=== PATIENT | female | born 1995 | race American Indian/Alaskan Native ===

== ENCOUNTER 2017-12-13 09:17 | Observation (INO) | payer OTHER ==
[~2017-12-13] VITALS: Ht 157.5 cm; Wt 72.0 kg
[~2017-12-13 09:17] MED LIST: ALBUTEROL SULF8.5 GM INH; NAPROSYN500 MG PO; NORCO 5-325 TA1 EACH PO
--- NOTE | 2017-12-14 07:06 | EKG ---
[facility] [address] [facility] [place], [place] [address] Signed Sinus tachycardia Otherwise normal ECG No previous ECGs available Confirmed by KATIE PERAL MD ([id number]) on 12/14/2017 7:06:24 AM Electronically Signed By: KATIE PEARL MD 12/14/17 0706 PATIENT NAME: LYNNE FRANCOIS Electrocardiogram DATE OF : [birth year] PHYSICIAN: KATIE PEARL MD REPORT #: [id number] REPORT IS CONFIDENTIAL AND NOT TO BE RELEASED WITHOUT AUTHORIZATION
[2017-12-15] MEDS ORDERED: NAPROSYN500 MG PO (09:00)
[2017-12-15] MEDS ORDERED: AMOX TR-K CLV1 EAC1 PO (09:01)
[2017-12-15] MEDS ORDERED: GUAIFENESIN-CODE5 ML PO (09:02)
== END 2017-12-15 11:45 | disposition home or self-care (01) ==
LOC: ED 09:17 → MS 09:19 → CCU 09:19 → MS 12-14 10:50
PROVIDERS: ADMIT Internal Medicine
DX: F15.129 Other stimulant abuse with intoxication, unspecified (principal); N39.0 Urinary tract infection, site not specified; R05 Cough; R00.0 Tachycardia, unspecified; F17.210 Nicotine dependence, cigarettes, uncomplicated; R19.00 Intra-abdominal and pelvic swelling, mass and lump, unspecified site; M79.89 Other specified soft tissue disorders
CPT/HCPCS: 36415; 71046; 80053; 81001; 82550; 83605; 84703; 85025; 87040; 87077; 87088; 87186; 87502; 93005; 93010; 96372; 96374; 96375; 96376; 99285; G0378; J0692; J2060; J7030; J7120

== ENCOUNTER 2018-11-11 15:58 | Observation (INO) | payer OTHER ==
[~2018-11-11] VITALS: Ht 157.5 cm; Wt 75.8 kg
[~2018-11-11 15:58] MED LIST changes: +AMOX TR-K CLV1 EAC1 PO; +GUAIFENESIN-CODE5 ML PO
--- NOTE | 2018-11-11 19:58 | NUR ---
11/11/181957 Angelica Bourgeois 1955: PT ARRIVES TO PACU FROM [place] DROWSY AND COUGHING. PT HAS MASK IN PLACE WITH 10L O2. PT SATS 100%. PT ABLE TO RESPOND TO VERBAL STIMULI AND STATES THAT HER THROAT HURTS.
--- NOTE | 2018-11-11 21:01 | NUR ---
PT ADMITTED FROM PACU, REPORT RECEIVED FROM PACU NURSE. PT IS ALERT AND AWAKE, TRANSFERRED SELF TO BED FROM [facility] BY SLIDING SELF. PT DENIES PAIN AT THIS TIME. STATES SHE IS HUNGRY AND REQUESTING ICE AND SOMETHING TO EAT. JELLO PROVIDED. I&D DONE TO LEFT LABIA ASSESSED, GAUZE IN PLACE NO DRAINAGE NOTED, WOUND IS PACKED WITH IODOFORM GAUZE. PERIPAD IN PLACE. PT EDUCATED REGARDING USING CALL LIGHT AND NOT GETTING UP WITHOUT ASSISTANCE, VERBALIZES UNDERSTANDING. MACK IN PLACE DRAINING YELLOW URINE. WILL EMPTY NOW AND START NEW URINE COUNT. ELEVATED HR NOTED, 101, PACU NURSE STATES PT HAS BEEN TACHYCARDIC. WILL CON TO MONITOR. CALL LIGHT IN HAND, BED RAILS IN PLACE.
--- NOTE | 2018-11-11 21:46 | NUR ---
PT HAS TOLERATED JELLO AND CRACKERS, WILL ADVANCE AND GIVE ICE CREAM. DENIES NAUSEA AND PAIN AT THIS TIME.
--- NOTE | 2018-11-11 22:30 | NUR ---
PT MAKING GOOD AMOUNT OF URINE, HR STILL ELEVATED 100-110. DENIES PAIN OR NAUSEA, IS EATING A TURKEY SANDWICH AND OTHER SNACKS, STATES SHE IS VERY HUNGRY.
--- NOTE | 2018-11-12 00:16 | NUR ---
PT RESTING WITH EYES CLOSED RESP EVEN AND UNLABORED RATE 20, HR 102, CONT TO MONITOR. URINE OUTPUT 400ML LAST 2 HOURS.
--- NOTE | 2018-11-12 01:57 | NUR ---
V/S AND I&O DONE AND CHARTED BY CELIA BODY MECHANIC AND THIS BODY MECHANIC.
--- NOTE | 2018-11-12 02:28 | NUR ---
PT RESTING WITH EYES CLOSED. RESP EVEN AND UNLABORED. SPO2 96%.
--- NOTE | 2018-11-12 05:34 | NUR ---
PT HAS BEEN SLEEPING, AWAKENS AND C/O 6/10 LABIA PAIN. NORCO GIVEN, DENIES NAUSEA OR OTHER NEEDS. WILL TRY TO GO BACK TO SLEEP AND CALL IF PAIN LEVEL DOES NOT IMPROVE.
--- NOTE | 2018-11-12 06:50 | NUR ---
ATTEMPTED TO DC MACK CATHETER. WATER EMPTIED FROM BALLOON AND ATTEMPTED TO PULL CATHETER OUT, BUT IT IS VERY PAINFUL FOR PT, EVEN JUST BARELY PULLING ON CATHETER PT IS EXCLAIMING IN PAIN. CALL TO DR TA TO INFORM. ORDER GIVEN FOR CBC. URINE OUTPUT HAS BEEN QS THIS SHIFT, VSS, HR HAS COME DOWN FROM 110 TO 80'S OVER THE LAST FEW HOURS. PT HAS REMAINED AFEBRILE.
--- NOTE | 2018-11-12 07:25 | NUR ---
BEDSIDE HANDOFF REPORT RECEIVED FROM ACETONE BUTTON PASTER RN. MARTINA CATH D/C WITHOUT DIFFICULTY. PT DENIES OTHER NEEDS AT THIS TIME.
[2018-11-12] MEDS ORDERED: IBU-200200 MG PO (08:55)
--- NOTE | 2018-11-12 09:00 | NUR ---
PT RESTING IN BED, EATING BREAKFAST. PT RATING PAIN 7/10 TO LEFT ABD, BACK AND LABIA, MOSTLY COMPLAINING OF ABD PAIN, TENDER TO PALPATE. PT ON ROOM AIR, LUNG SOUNDS CLEAR, DENIES SOB. BOWEL TONES ACTIVE, TOLERATING REGULAR DIET, GOOD APPETITE, DENIES NAUSEA. PT DENIES NUMBNESS/TINGLING, CMS INTACT. SALINE LOCKED. DISCUSSED PLAN OF CARE FOR THE DAY, PT STATES SHE IS GOING TO BE DISCHARGED LATER.
--- NOTE | 2018-11-12 09:03 | NUR ---
MED REC COMPLETE
--- NOTE | 2018-11-12 09:16 | NUR ---
PT COMPLAINT OF PAIN 7/10 TO LEFT LOWER ABD, BACK AND LABIA, PROVIDED WITH 800 MG PO MOTRIN. PT WITH GOOD APPETITE. PT DENIES OTHER NEEDS AT THIS TIME.
--- NOTE | 2018-11-12 09:28 | NUR ---
DR. TA CALLED AND NOTIFIED ABOUT LLQ PAIN, NO NEW ORDERS.
--- NOTE | 2018-11-12 10:42 | NUR ---
PT RESTIING IN BED. VISITORS AT BEDSIDE.
--- NOTE | 2018-11-12 11:03 | OR ---
[facility] [address] [place] [address] Signed DATE OF OPERATION: 11/11/2018 SURGEON: Ildefonso Rooney MD Patient of Dr. Rooney. PREOPERATIVE DIAGNOSIS: Large left vulvar mass, probable Bartholin abscess. POSTOPERATIVE DIAGNOSIS: Left vulvar abscess, probable Bartholin gland abscess. PROCEDURE PERFORMED: Incision and drainage of abscess with marsupialization and opening. ANESTHESIA: General. ESTIMATED BLOOD LOSS: 10 mL. SPECIMEN: Cyst contents sent for cytology. Also, cultures done are cyst contents, both aerobic and anaerobic. DRAINS: Pike to bladder. PACKING: Iodoform gauze in the abscess cavity. FINDINGS: A large, very tender, and firm left labial abscess approximately 14 cm AP direction by 10 cm lateral by 8 cm deep, probably from the left Bartholin gland. This was deflecting the vaginal wall to the right and also extending to the left and also up and pressing on the urethra and pressing down on the rectum. Digital rectal exam showed no communication with the rectum and the cyst and the bladder was filled with clear urine and no obvious connection with the bladder or urethra. COMPLICATIONS: Portions of this report were created using voice recognition software. There may be inadvertent computer error. Please read with context in mind. If there are any questions, please contact me. Electronically Signed By: ILDEFONSO ROONEY MD 11/12/18 1103 PATIENT NAME: LYNNE FRANCOIS OPERATIVE REPORT DATE OF : [birth year] REPORT #: [id number] PHYSICIAN: ILDEFONSO ROONEY MD PCP: ARTURO FAULKNER REPORT IS CONFIDENTIAL AND NOT TO BE RELEASED WITHOUT AUTHORIZATION [facility] [address] [place], [place] [address] Signed None. DESCRIPTION OF PROCEDURE: The patient was brought to the operating room, placed in supine position. After adequate general anesthesia was obtained, prepped and draped in usual sterile fashion. The mass was palpated and the extent carefully examined. The urethra was noted to be pushed posterior and lateral, but a Pike catheter was then placed in the bladder and approximately 800 mL of clear urine was removed. The skin over the abscess that appeared to be at the introitus was identified as close as possible, and then a small incision made with a #11 blade. Large amount of thin, brownish, foul-smelling liquid came from the cyst, but it is difficult to estimate the amount because of the amount that was caught in the drapes under the patient. This brown fluid easily came from the incision and when this flow decreased, the cyst was palpated and pressed and more brown fluid came out. There were few soft, bit more solid pieces that came out with the fluid, and these were grasped and several of them taken with some of the fluid to be sent to Pathology for evaluation of possible cellular identification. With most of the fluid out, the incision was extended further to make approximately 3 cm long incision in the AP direction and then the entire cyst was irrigated and filled with IrriSept fluid. This was left in for little over 1 minute time and then 2 L of normal saline was used to irrigate the IrriSept out and also to irrigate the cyst wall. During the irrigation, finger was placed in the cyst and a few small loculations broken up. The entire cyst was palpated and the cyst did not appear to extend anywhere further. So, again the cyst was copiously irrigated. At the end of the irrigation, digital rectal exam was repeated and no masses noted between the rectum and the cyst wall and no defects noted in the cyst wall and there was none of the brown fluid or irrigation in the rectum suggesting communication. At this point, 3-0 Vicryl suture was used to marsupialize the opening by running stitch from anterior posterior, bringing out the cyst wall to the vaginal mucosa on the left side and then a 2nd stitch on the right side combining the cyst wall to the vaginal mucosa to help keep this open. After this was closed, finger dissection was again felt in the area and the area irrigated further. Good hemostasis was noted. The empty cyst was then packed with a full bottle of iodoform gauze to help keep the cyst from re-closing, and at this point no additional fluid or blood was noted, so the procedure was terminated. The patient tolerated the procedure well, went to recovery room in good condition. The sponge, needle, and instrument count correct at the end of the procedure. The cultures were sent to the lab and more solid pieces sent to Pathology for identification. Ildefonso Rooney MD Portions of this report were created using voice recognition software. There may be inadvertent computer error. Please read with context in mind. If there are any questions, please contact me. Electronically Signed By: ILDEFONSO ROONEY MD 11/12/18 1103 PATIENT NAME: LYNNE FRANCOIS OPERATIVE REPORT DATE OF : [birth year] REPORT #: [id number] PHYSICIAN: ILDEFONSO ROONEY MD PCP: ARTURO FAULKNER REPORT IS CONFIDENTIAL AND NOT TO BE RELEASED WITHOUT AUTHORIZATION [facility] [address] [place] [address] Signed KERMIT/ALEXANDRAL /[id number] cc: OLIVA Valentin, PCP Copies: ~ Portions of this report were created using voice recognition software. There may be inadvertent computer error. Please read with context in mind. If there are any questions, please contact me. Electronically Signed By: ILDEFONSO ROONEY MD 11/12/18 1103 PATIENT NAME: LYNNE FRANCOIS OPERATIVE REPORT DATE OF : [birth year] REPORT #: [id number] PHYSICIAN: ILDEFONSO ROONEY MD PCP: ARTURO FAULKNER REPORT IS CONFIDENTIAL AND NOT TO BE RELEASED WITHOUT AUTHORIZATION
[2018-11-12] MEDS ORDERED: NORCO 5-325 TA1 EACH PO (12:34)
[2018-11-12] MEDS ORDERED: IBU800 MG PO (12:35)
[2018-11-12] MEDS ORDERED: BACTRIM DS TAB1 EACH PO (12:35)
--- NOTE | 2018-11-12 12:47 | NUR ---
ORDER RECEIVED FOR WOUND CONSULT. PATIENT'S MEDICAL RECORD IS REVIEWED. HER NURSE, JOSE ANTONIO AND PATIENT ARE INTERVIEWED. PATIENT REPORTS A LONG STANDING ABNORMALITY ON HER LABIA MAJORA. PATIENT REPORTS SOMETIMES IT WOULD BE SWOLLEN AND SOMETIMES IT WOULD GO BACK TO NORMAL, BUT AFTER IT GOT "THE WORST IT'S EVER BEEN", SHE PRESENTED TO THE ED. PATIENT HAD A SURGICAL I&D OF THE ABSCESS YESTERDAY, 11/11/18. PATIENT REPORTS MINIMAL PAIN WHILE LAYING IN BED. PATIENT IS HESITANT FOR DRESSING CHANGES BECAUSE SHE IS "SCARED IT WILL HURT". 1/4" IODOFORM STRIP PACKING IS CAREFULLY REMOVED FROM THE MEDIAL EDGE OF THE LEFT LABIA MAJORA. PATIENT TOLERATES THE REMOVAL WELL. THERE IS QUITE A LARGE AMOUNT OF PACKING THAT IS REMOVED AND IT IS SATURATED IN PINK/RED DRAINAGE. A SMALL AMOUNT OF PINK/RED DRAINAGE IS NOTED TO THE RAFAELA-PAD WELL. WOUND CLEANSER IS APPLIED AND GENTLY DABBED TO CLEAN. 1/4" IODOFORM STRIP PACKING IS GENTLY APPLIED INTO WOUND USING STERILE COTTON TIPPED APPLICATOR. PATIENT DOES REPORT INCREASED DISCOMFORT DURING THE PACKING, BUT TOLERATES IT WELL OVERALL. NEW RAFAELA-PAD AND STRETCH KNIT BRIEFS ARE PLACED. PATIENT IS INSTRUCTED TO COME DAILY FOR DRESSING CHANGES STARTING TOMORROW AT 1400. PATIENT VERBALIZES UNDERSTANDING. SIGNS AND SYMPTOMS TO BE MINDFUL OF ARE REVIEWED (I.E, FEVER, INCREASED PAIN, INCREASED SWELLING, REDNESS AND DISCHARGE). PATIENT VERBALIZES UNDERSTANDING.
== END 2018-11-12 14:05 | disposition home or self-care (01) ==
LOC: ED 15:58 → MS 16:00
PROVIDERS: ADMIT General Practice
PROC: 0U9L0ZZ Drainage of Vestibular Gland, Open Approach (ICD-10-PCS; principal; 2018-11-11 18:20)
DX: N75.1 Abscess of Bartholin's gland (principal); F17.210 Nicotine dependence, cigarettes, uncomplicated
CPT/HCPCS: 00400; 36415; 72194; 80053; 84703; 85025; 88304; 96361; 99285-25; 99406; G0378; J0330; J0690; J1100; J1170; J1885; J2250; J2405; J2704; J2765; J3010; J7030; J7120; Q9967

== ENCOUNTER 2018-11-13 14:37 | Observation (INO) | payer OTHER ==
[~2018-11-13] VITALS: Ht 157.5 cm; Wt 75.3 kg
[~2018-11-13 14:37] MED LIST changes: +BACTRIM DS TAB1 EACH PO; +IBU-200200 MG PO; +IBU800 MG PO
== END 2018-11-14 15:20 | disposition home or self-care (01) ==
LOC: OPV-DS 14:37 → MS 15:50 → OPV-DS 16:15 → MS 11-14 15:20
PROVIDERS: ADMIT General Practice
DX: N75.1 Abscess of Bartholin's gland (principal); J45.909 Unspecified asthma, uncomplicated; F17.200 Nicotine dependence, unspecified, uncomplicated
CPT/HCPCS: 74177; 80053; 85025; 96361; 96365; 96366; 99211; G0378; J3370; J7120; Q9967

== ENCOUNTER 2023-10-30 15:36 | Emergency (ER) | payer OTHER ==
[~2023-10-30] VITALS: Ht 157.5 cm; Wt 106.7 kg
[2023-10-30] MEDS ORDERED: ACETAMINOPHEN 500 MG TAB PO ONE (17:15)
[2023-10-30 17:22] VITALS: BP 138/82
== END 2023-10-30 17:22 | disposition home or self-care (01) ==
LOC: ED 15:36
DX: M67.431 Ganglion, right wrist (principal); M79.10 Myalgia, unspecified site; J45.909 Unspecified asthma, uncomplicated; F17.200 Nicotine dependence, unspecified, uncomplicated
CPT/HCPCS: 99283

== ENCOUNTER 2025-04-21 05:57 | Emergency (ER) | payer MEDICAID ==
[~2025-04-21] VITALS: Ht 157.5 cm; Wt 116.0 kg
[~2025-04-21 05:57] MED LIST changes: +HYDROCODON-ACE1 EA10 PO
[2025-04-21 06:14] LABS: BASOPHILS 0.6 % (0.1-1.2); EOSINOPHILS 1.6 % (0.7-5.8); LYMPHOCYTES 31.2 % (19.3-51.7); MCH 28.8 PG (25.6-32.2); MCHC 35.1 g/dL (32.2-35.5); MCV 82.1 fL (79.4-94.8); MONOCYTES 5.9 % (4.7-12.5); NEUTROPHILS 60.4 % (34.0-71.1); RBC 5.07 M/uL (3.93-5.22)
[2025-04-21] MEDS ORDERED: LACTATED RINGER'S 1,000 ML IV ONE (06:15)
[2025-04-21] MEDS ORDERED: ASPIRIN 81 MG CHEW PO ONE (06:15)
[2025-04-21] MEDS ORDERED: NITROGLYCERIN 0.4 MG SUBL SL PRN (06:15)
[2025-04-21] MEDS ORDERED: LORazepam 2 MG/ML VIAL IV ONE (06:15)
[2025-04-21 06:36] LABS: ALT (SGPT) 48.0 U/L (14-59); AST (SGOT) 43.0 U/L (15-37); GLOMERULAR FILTRATION RATE,EST 77.0 mL/min (>60); PROTEIN, TOTAL 8.8 g/dL (6.4-8.2); UREA NITROGEN 13.0 mg/dL (7-18)
[2025-04-21] MEDS ORDERED: POTASSIUM CHLORIDE 10 MEQ TABCR PO ONE (07:00)
[2025-04-21] MEDS ORDERED: HYDROXYZINE HCL25 MG PO (08:51)
[2025-04-21 09:01] VITALS: BP 144/86
--- NOTE | 2025-04-22 21:20 | EKG ---
[facility] [address] [facility] [place], [place] [address] Signed Sinus tachycardia Otherwise normal ECG When compared with ECG of 13-DEC-2017 13:30, No significant change was found Confirmed by Carmelina Crawford DO ([id number]) on 04/22/2025 9:20:27 PM Electronically Signed By: CARMELINA CRAWFORD DO 04/22/252119 PATIENT NAME: LYNNE FRANCOIS Electrocardiogram DATE OF : [birth year] PHYSICIAN: CARMELINA CRAWFORD DO REPORT #: [id number] REPORT IS CONFIDENTIAL AND NOT TO BE RELEASED WITHOUT AUTHORIZATION
== END 2025-04-21 09:02 | disposition home or self-care (01) ==
LOC: ED 05:57
PROVIDERS: Internal Medicine
DX: F41.9 Anxiety disorder, unspecified (principal); F15.129 Other stimulant abuse with intoxication, unspecified; E66.01 Morbid (severe) obesity due to excess calories; F17.200 Nicotine dependence, unspecified, uncomplicated
CPT/HCPCS: 36415; 71045; 80053; 80307; 83735; 84484; 84702; 85025; 93005; 93010; 96361; 96374; 99285-25; A9270; G0480; J2060; J7121